=== PATIENT | male | born 1945 | race Caucasian/White ===

== ENCOUNTER 2017-05-03 12:09 | Inpatient (IN) | payer MEDICARE ==
[~2017-05-03] VITALS: Ht 177.8 cm; Wt 110.0 kg
[~2017-05-03 12:09] MED LIST: ASPI325; ASPI81CH PO; CENTRUM SILVER1 EAC2 PO; CIPRO500 MG PO; FLUT.05NI; Flagyl500 MG PO; GLIP5; Glipizide Xl10 MG PO; Iron Supplemen325 MG PO; LISI20 PO; METF500 PO; METO25 PO; OMEP20ER; OMEP40CA12 PO; PRAV20 PO; Percocet 5-3251 EACH PO; TRAZ150T57 PO; VENL150ER PO
[2017-05-03] MEDS ORDERED: GLIP2.5ER PO (12:18)
[2017-05-03] MEDS ORDERED: METF500 PO (12:19)
[2017-05-03] MEDS ORDERED: Isosorbide Mono30 MG PO (12:19)
[2017-05-03] MEDS ORDERED: OMEPRAZOLE MAGN20 MG PO (12:20)
[2017-05-03] MEDS ORDERED: XARELTO20 MG PO (12:21)
[2017-05-03] MEDS ORDERED: ASPI81CH PO (12:22)
[2017-05-03 12:42] LABS: BASOPHILS ABSOLUTE AUTO 0.01 K/mm3 (0.00-0.23); BASOPHILS PERCENT AUTO 0 % (0-2); EOSINOPHILS PERCENT AUTO 2 % (0-6); Hematocrit 19.4 % (37.0-53.0); IMMATURE GRAN ABSOLUTE AUTO 0.03 K/mm3 (0.00-0.10); IMMATURE GRAN PERCENT AUTO 0 % (0-1); LYMPHOCYTES ABSOLUTE AUTO 0.65 K/mm3 (0.84-5.20); LYMPHOCYTES PERCENT AUTO 10 % (21-46); MONOCYTES ABSOLUTE AUTO 0.57 K/mm3 (0.16-1.47); MONOCYTES PERCENT AUTO 8 % (4-13); Mean Corpuscular HGB 17.6 pg (26.0-34.0); Mean Corpuscular HGB Conc 26.8 g/dL (31.5-36.5); Mean Corpuscular Volume 66 fL (80-100); Mean Platelet Volume 9.7 fL (9.1-12.4); NEUTROPHILS ABSOLUTE AUTO 5.39 K/mm3 (1.96-9.15); NEUTROPHILS PERCENT AUTO 80 % (41-73); Platelet Count 261 K/mm3 (150-400); RDW Coefficient Variation 20.4 % (11.7-14.2); Red Blood Cell Count 2.95 M/mm3 (4.30-5.90); White Blood Cell Count 6.75 K/mm3 (4.00-11.30)
[2017-05-03 12:45] LABS: Hemoglobin 5.2 g/dL (13.5-17.5)
[2017-05-03 13:01] LABS: International Normalized Ratio 1.19; Prothrombin Time Results 12.4 Sec (9.7-11.5)
[2017-05-03 13:06] LABS: Alanine Aminotransfer (ALT/SGP 32 U/L (12-78); Albumin, Blood 3.2 g/dL (3.4-5.0); Albumin/Globulin Ratio 1.1 (0.8-1.8); Alk Phos 64 U/L (50-136); Anion Gap 10 mmol/L (6-16); Aspartate Aminotrans (AST/SGOT 24 U/L (12-37); Bilirubin, Total 0.7 mg/dL (0.1-1.0); Blood Urea Nitrogen 13 mg/dL (8-24); Bun/Creatinine Ratio 15.5 (12.0-20.0); CO2, Blood 25 mmol/L (21-32); Calcium, Blood 8.1 mg/dL (8.5-10.1); Chloride, Blood 103 mmol/L (98-108); Creatinine, Blood 0.84 mg/dL (0.60-1.20); Glomerular Filtration Rate >60 (60-); Glucose, Blood 192 mg/dL (70-99); Potassium, Blood 3.8 mmol/L (3.5-5.5); Sodium, Blood 138 mmol/L (136-145); Total Protein, Blood 6.2 g/dL (6.4-8.2); Troponin I <0.015 ng/mL (0.000-0.040)
[2017-05-04 04:11] LABS: Hematocrit 22.7 % (37.0-53.0); Hemoglobin 6.4 g/dL (13.5-17.5); Mean Corpuscular HGB 19.2 pg (26.0-34.0); Mean Corpuscular HGB Conc 28.2 g/dL (31.5-36.5); Mean Corpuscular Volume 68 fL (80-100); Mean Platelet Volume 9.3 fL (9.1-12.4); NRBC ABSOLUTE 0.03 K/mm3 (0.00-0.02); NRBC Auto 0.5 /100 WBC (0.0-0.2); Platelet Count 218 K/mm3 (150-400); RDW Coefficient Variation 21.2 % (11.7-14.2); RDW Standard Deviation 52.3 fL (35.1-46.3); Red Blood Cell Count 3.34 M/mm3 (4.30-5.90); White Blood Cell Count 6.65 K/mm3 (4.00-11.30)
[2017-05-04 12:51] LABS: Hematocrit 25.6 % (37.0-53.0); Hemoglobin 7.4 g/dL (13.5-17.5)
[2017-05-04 19:59] LABS: Hematocrit 24.6 % (37.0-53.0); Hemoglobin 6.9 g/dL (13.5-17.5)
[2017-05-05 05:09] LABS: Hematocrit 27.1 % (37.0-53.0); Hemoglobin 7.9 g/dL (13.5-17.5)
[2017-05-05 13:51] LABS: Hematocrit 28.4 % (37.0-53.0); Hemoglobin 8.4 g/dL (13.5-17.5)
[2017-05-06 00:26] LABS: Hematocrit 30.3 % (37.0-53.0)
[2018-01-01] MEDS ORDERED: ROSU5 PO (15:07)
[2018-01-01] MEDS ORDERED: CLOP75 PO (15:34)
[2018-01-01] MEDS ORDERED: HYDR1TAB94 PO (15:34)
[2018-01-01] MEDS ORDERED: Pepcid40 MG PO (15:34)
== END 2017-05-06 16:19 | disposition home or self-care (01) | DRG 378 ==
LOC: ER 12:09 → PCU 12:10
PROVIDERS: Emergency Medicine; Internal Medicine; Internal Medicine Gastroenterology
PROC: 3E0234Z Introduction of Serum, Toxoid and Vaccine into Muscle, Percutaneous Approach (ICD-10-PCS; 2017-05-03)
PROC: 30233N1 Transfusion of Nonautologous Red Blood Cells into Peripheral Vein, Percutaneous Approach (ICD-10-PCS; 2017-05-03)
PROC: 0W3P8ZZ Control Bleeding in Gastrointestinal Tract, Via Natural or Artificial Opening Endoscopic (ICD-10-PCS; 2017-05-04)
PROC: 0D568ZZ Destruction of Stomach, Via Natural or Artificial Opening Endoscopic (ICD-10-PCS; 2017-05-04)
PROC: 0DBH8ZZ Excision of Cecum, Via Natural or Artificial Opening Endoscopic (ICD-10-PCS; principal; 2017-05-06 12:30)
DX: K31.82 Dieulafoy lesion (hemorrhagic) of stomach and duodenum (principal); D62 Acute posthemorrhagic anemia; R06.03 Acute respiratory distress; I48.0 Paroxysmal atrial fibrillation; E11.9 Type 2 diabetes mellitus without complications; Z23 Encounter for immunization; Z87.11 Personal history of peptic ulcer disease; K21.9 Gastro-esophageal reflux disease without esophagitis; Z79.01 Long term (current) use of anticoagulants; E78.5 Hyperlipidemia, unspecified; I10 Essential (primary) hypertension; I25.10 Atherosclerotic heart disease of native coronary artery without angina pectoris; H91.93 Unspecified hearing loss, bilateral; K44.9 Diaphragmatic hernia without obstruction or gangrene; K57.30 Diverticulosis of large intestine without perforation or abscess without bleeding; K63.5 Polyp of colon; K64.1 Second degree hemorrhoids
CPT/HCPCS: 36415; 36430; 80053; 82272; 82947; 84484; 85014; 85018; 85025; 85027; 85610; 85730; 86850; 86900; 86901; 86920; 88305; 93005; 93010; 96374; 96375; 99285; C9113; J1940; J2405; J7030; J7120; P9016

== ENCOUNTER 2018-08-29 05:18 | Emergency (ER) | payer MEDICARE ==
[~2018-08-29] VITALS: Ht 180.3 cm; Wt 104.3 kg
[~2018-08-29 05:18] MED LIST changes: +CLOP75 PO; +GLIP2.5ER PO; +HYDR1TAB94 PO; +Isosorbide Mono30 MG PO; +OMEPRAZOLE MAGN20 MG PO; +Pepcid40 MG PO; +ROSU5 PO; +XARELTO20 MG PO
[2018-08-29 05:53] LABS: BASOPHILS ABSOLUTE AUTO 0.05 K/mm3 (0.00-0.23); BASOPHILS PERCENT AUTO 1 % (0-2); EOSINOPHILS PERCENT AUTO 3 % (0-6); Hematocrit 41.8 % (37.0-53.0); Hemoglobin 13.3 g/dL (13.5-17.5); IMMATURE GRAN ABSOLUTE AUTO 0.03 K/mm3 (0.00-0.10); IMMATURE GRAN PERCENT AUTO 0 % (0-1); LYMPHOCYTES ABSOLUTE AUTO 1.06 K/mm3 (0.84-5.20); LYMPHOCYTES PERCENT AUTO 15 % (21-46); MONOCYTES ABSOLUTE AUTO 0.76 K/mm3 (0.16-1.47); MONOCYTES PERCENT AUTO 11 % (4-13); Mean Corpuscular HGB 27.4 pg (26.0-34.0); Mean Corpuscular HGB Conc 31.8 g/dL (31.5-36.5); Mean Corpuscular Volume 86 fL (80-100); NEUTROPHILS ABSOLUTE AUTO 5.12 K/mm3 (1.96-9.15); NEUTROPHILS PERCENT AUTO 71 % (41-73); Platelet Count 281 K/mm3 (150-400); RDW Coefficient Variation 13.2 % (11.7-14.2); RDW Standard Deviation 41.4 fL (35.1-46.3); Red Blood Cell Count 4.85 M/mm3 (4.30-5.90); White Blood Cell Count 7.22 K/mm3 (4.00-11.30)
[2018-08-29 06:14] LABS: Alanine Aminotransfer (ALT/SGP 62 U/L (12-78); Albumin, Blood 3.9 g/dL (3.4-5.0); Albumin/Globulin Ratio 1.2 (0.8-1.8); Alk Phos 109 U/L (50-136); Anion Gap 8 mmol/L (6-16); Aspartate Aminotrans (AST/SGOT 43 U/L (12-37); Blood Urea Nitrogen 9 mg/dL (8-24); Bun/Creatinine Ratio 10.2 (12.0-20.0); CO2, Blood 26 mmol/L (21-32); Calcium, Blood 9.3 mg/dL (8.5-10.1); Chloride, Blood 103 mmol/L (98-108); Creatinine, Blood 0.89 mg/dL (0.60-1.20); Globulin, Blood 3.2 g/dL (2.2-4.0); Glomerular Filtration Rate >60 (60-); Glucose, Blood 322 mg/dL (70-99); Potassium, Blood 3.9 mmol/L (3.5-5.5); Sodium, Blood 137 mmol/L (136-145); Total Protein, Blood 7.1 g/dL (6.4-8.2); Troponin I <0.015 ng/mL (0.000-0.040)
[2018-08-29] MEDS ORDERED: LO-DOSE ASPIRIN81 MG PO (06:22)
[2018-08-29] MEDS ORDERED: NITR.4SL SL (06:22)
[2018-08-29] MEDS ORDERED: VENL150ER PO (06:22)
[2018-08-29] MEDS ORDERED: CENTRUM SILVER1 EAC4 PO (06:23)
[2018-08-29] MEDS ORDERED: FERROUS SULFATE PO (06:23)
== END 2018-08-29 08:06 | disposition home or self-care (01) ==
LOC: ER 05:18
PROVIDERS: Emergency Medicine
DX: I48.91 Unspecified atrial fibrillation (principal); Z79.899 Other long term (current) drug therapy; Z79.84 Long term (current) use of oral hypoglycemic drugs; Z79.82 Long term (current) use of aspirin; E11.9 Type 2 diabetes mellitus without complications; I10 Essential (primary) hypertension; I25.10 Atherosclerotic heart disease of native coronary artery without angina pectoris
CPT/HCPCS: 36415; 71046; 80053; 83735; 84484; 85025; 93005; 93010; 99285-25

== ENCOUNTER 2019-02-11 09:07 | Inpatient (IN) | payer MEDICARE ==
[~2019-02-11] VITALS: Ht 177.8 cm; Wt 101.4 kg
[~2019-02-11 09:07] MED LIST changes: +CENTRUM SILVER1 EAC4 PO; +FERSU300 PO; +GLIP10ER PO; -GLIP2.5ER PO; +LO-DOSE ASPIRIN81 MG PO; +NITR.4SL SL; -ROSU5 PO; +ROSUVASTATIN CA20 MG PO
[2019-02-11 09:50] LABS: BASOPHILS ABSOLUTE AUTO 0.04 K/mm3 (0.00-0.23); BASOPHILS PERCENT AUTO 1 % (0-2); EOSINOPHILS ABSOLUTE AUTO 0.13 K/mm3 (0.00-0.68); EOSINOPHILS PERCENT AUTO 2 % (0-6); Hematocrit 40.7 % (37.0-53.0); Hemoglobin 12.3 g/dL (13.5-17.5); IMMATURE GRAN ABSOLUTE AUTO 0.04 K/mm3 (0.00-0.10); IMMATURE GRAN PERCENT AUTO 1 % (0-1); LYMPHOCYTES ABSOLUTE AUTO 0.71 K/mm3 (0.84-5.20); LYMPHOCYTES PERCENT AUTO 9 % (21-46); MONOCYTES ABSOLUTE AUTO 0.57 K/mm3 (0.16-1.47); MONOCYTES PERCENT AUTO 8 % (4-13); Mean Corpuscular HGB 24.1 pg (26.0-34.0); Mean Corpuscular HGB Conc 30.2 g/dL (31.5-36.5); Mean Corpuscular Volume 80 fL (80-100); Mean Platelet Volume 10.2 fL (9.1-12.4); NEUTROPHILS PERCENT AUTO 80 % (41-73); Platelet Count 279 K/mm3 (150-400); RDW Coefficient Variation 14.5 % (11.7-14.2); Red Blood Cell Count 5.11 M/mm3 (4.30-5.90); White Blood Cell Count 7.59 K/mm3 (4.00-11.30)
[2019-02-11 09:54] LABS: Alanine Aminotransfer (ALT/SGP 54 U/L (12-78); Albumin, Blood 3.7 g/dL (3.4-5.0); Albumin/Globulin Ratio 1.1 (0.8-1.8); Alk Phos 105 U/L (50-136); Anion Gap 8 mmol/L (6-16); Aspartate Aminotrans (AST/SGOT 32 U/L (12-37); Bilirubin, Total 0.6 mg/dL (0.1-1.0); Blood Urea Nitrogen 15 mg/dL (8-24); Bun/Creatinine Ratio 18.6 (12.0-20.0); CO2, Blood 25 mmol/L (21-32); Chloride, Blood 106 mmol/L (98-108); Creatinine, Blood 0.81 mg/dL (0.60-1.20); Globulin, Blood 3.3 g/dL (2.2-4.0); Glomerular Filtration Rate >60 (60-); Glucose, Blood 323 mg/dL (70-99); Potassium, Blood 4.1 mmol/L (3.5-5.5); Sodium, Blood 139 mmol/L (136-145); Troponin I <0.015 ng/mL (0.000-0.040)
[2019-02-11 12:45] LABS: Thyroid Stimulating Hormone 0.884 uIU/mL (0.360-4.800)
[2019-02-11] MEDS ORDERED: PANT40 PO (12:53)
[2019-02-11] MEDS ORDERED: FINA5 PO (12:57)
[2019-02-11] MEDS ORDERED: TAMS.4ER PO (12:57)
[2019-02-11] MEDS ORDERED: Flonase 0.05% N16 GM (12:58)
[2019-02-11 13:21] LABS: International Normalized Ratio 0.98; Prothrombin Time Results 10.4 Sec (9.7-11.5)
--- NOTE | 2019-02-11 15:56 | NUR ---
transesophageal echocardiogram completed
--- NOTE | 2019-02-11 16:06 | NUR ---
PT ARRIVED TO PCU 2 VIA GURNEY FROM ED AFTER CRISSY AND ATTEMPTED CARDIOVERSION, HE IS A/OX3, [place], LUNGS ARE CLEAR T/O, RESP EVEN AND UNLABORED, NO COUGH NOTED, HRIRR, TELE IN PLACE RUNNING AFIB PER MONITOR, SEE STRIP, NO EDEMA NOTED, PPP+1, CAP REFILL <3SEC, VS STABLE, AFEBRILE, IV SITE IS CLEAR AND PATENT, BTX4, ABD FLAT SOFT NONTENDER, VOIDS WITHOUT DIFF, SKIN C/W/D, MAEW, SURESH, CALL LIGHT IN REACH.
--- NOTE | 2019-02-11 16:35 | NUR ---
ECHOCARDIOGRAM COMPLETE
--- NOTE | 2019-02-11 19:30 | NUR ---
DR. UREÑA WAS IN TO SEE PT, OK FOR HIM TO EAT DINNER THEN NPO AFTER MID, AMIODORONE IS INFUSING AND HEP GTT. PT DOING OK, CALL LIGHT IN REACH.
[2019-02-12 02:32] LABS: Anion Gap 6 mmol/L (6-16); Blood Urea Nitrogen 13 mg/dL (8-24); CHOL/HDL RATIO 3.4; CO2, Blood 28 mmol/L (21-32); Calcium, Blood 8.5 mg/dL (8.5-10.1); Chloride, Blood 107 mmol/L (98-108); Cholesterol 137 mg/dL (50-200); Creatinine, Blood 0.81 mg/dL (0.60-1.20); Glomerular Filtration Rate >60 (60-); Glucose, Blood 194 mg/dL (70-99); HDL Cholesterol 40 mg/dL (>39); LDL/HDL RATIO 1.8; Low Density Lipoprotein Chol 73 mg/dL (0-110); Sodium, Blood 141 mmol/L (136-145); Triglycerides 120 mg/dL (30-160); Very Low Density Lipoprot Chol 24 mg/dL (6-32)
--- NOTE | 2019-02-12 04:28 | NUR ---
SHIFT SUMMARY: PATIENT EKG COMPLETED, SLEPT WELL THIS SHIFT, HR REMAINED APPROX IN THE 80'S, ALL OTHER VSS. PATIENT VERY [place], NO HEARING AID FOR RIGHT EAR. 0000 BLOOD GLUCOSE READING DID NOT REGISTER BUT WAS IS STILL ON THE GLUCOMETER, WITNESSED BY MYSELF AND HANH Marrero, READING WAS 166.
--- NOTE | 2019-02-12 08:00 | NUR ---
pt laying in bed awake a/ox3, pleasant and cooperative with care, follows commands well, denies pain, states he had a pretty good night, he is still running afib, amiodorone and heperin is continuing, lungs are clear in upper bob and a bit dim in bases, is on r/a, resp even and unlabored, no cough noted, hrirr, tele in place running afib per monitor, see strip, no edema noted, ppp+1, cap refill <3sec, vs stable, afebrile, iv sites are clear and patent, btx4, abd flat soft nontender, voids without diff, skin c/w/d, maew, nitza, call light in reach.
--- NOTE | 2019-02-12 13:02 | NUR ---
PT DOING OK IN ROOM, IS FOCUSED ON GETTING SOME COFFEE. CALL LIGHT IN REACH.
--- NOTE | 2019-02-12 18:54 | NUR ---
pt doing ok, vs stable, no acute changes this shift. call light in reach.
--- NOTE | 2019-02-12 19:39 | NUR ---
CARE ASSUMPTION PT A&O X4. PT [place] W/ 1 HEARING AID IN L EAR W/ PT REPORT OF HAVING LOST HEARING AID FOR R EAR. PT VSS. MONITOR SHOWS AFIB, HR 80'S AT THIS TIME. LUNG SOUNDS CLEAR, SPO2 > 92% ON RA. WILL CONTINUE TO MONITOR AND PROVIDE CARE.
--- NOTE | 2019-02-12 21:00 | NUR ---
CONVERSION TO NSR PT CONVERTED FROM AFIB TO NSR, HR 80's @ 2044. CONVERSION STRIP PRINTED AND PLACED IN CHART. WILL CONTINUE TO MONITOR AND PROVIDE CARE.
[2019-02-13 03:36] LABS: BASOPHILS ABSOLUTE AUTO 0.05 K/mm3 (0.00-0.23); BASOPHILS PERCENT AUTO 1 % (0-2); EOSINOPHILS ABSOLUTE AUTO 0.25 K/mm3 (0.00-0.68); EOSINOPHILS PERCENT AUTO 4 % (0-6); Hematocrit 36.6 % (37.0-53.0); IMMATURE GRAN ABSOLUTE AUTO 0.03 K/mm3 (0.00-0.10); IMMATURE GRAN PERCENT AUTO 0 % (0-1); LYMPHOCYTES PERCENT AUTO 21 % (21-46); MONOCYTES ABSOLUTE AUTO 0.67 K/mm3 (0.16-1.47); MONOCYTES PERCENT AUTO 10 % (4-13); Mean Corpuscular HGB 24.2 pg (26.0-34.0); Mean Corpuscular HGB Conc 30.1 g/dL (31.5-36.5); Mean Corpuscular Volume 80 fL (80-100); Mean Platelet Volume 10.2 fL (9.1-12.4); NEUTROPHILS ABSOLUTE AUTO 4.54 K/mm3 (1.96-9.15); NEUTROPHILS PERCENT AUTO 65 % (41-73); Platelet Count 205 K/mm3 (150-400); RDW Coefficient Variation 14.5 % (11.7-14.2); RDW Standard Deviation 42.5 fL (35.1-46.3); Red Blood Cell Count 4.55 M/mm3 (4.30-5.90); White Blood Cell Count 7.04 K/mm3 (4.00-11.30)
[2019-02-13 04:00] LABS: Anion Gap 6 mmol/L (6-16); Blood Urea Nitrogen 13 mg/dL (8-24); Bun/Creatinine Ratio 17.1 (12.0-20.0); CO2, Blood 28 mmol/L (21-32); Calcium, Blood 8.4 mg/dL (8.5-10.1); Chloride, Blood 108 mmol/L (98-108); Creatinine, Blood 0.76 mg/dL (0.60-1.20); Glomerular Filtration Rate >60 (60-); Glucose, Blood 157 mg/dL (70-99); Magnesium, Blood 2.1 mg/dL (1.6-2.4); Potassium, Blood 4.1 mmol/L (3.5-5.5); Sodium, Blood 142 mmol/L (136-145); Troponin I <0.015 ng/mL (0.000-0.040)
--- NOTE | 2019-02-13 05:09 | NUR ---
SHIFT SUMMARY PT A&O X4. [place]. VSS. PT CONVERTED FROM AFIB TO NSR @ 2044 THIS SHIFT. MONITOR SHOWS SR, HR 60's-80's. LUNG SOUNDS CLEAR, SPO2 > 92% ON RA. HEPARIN GTT INFUSING PER ORDERS. NS GTT INFUSING PER ORDERS. WILL CONTINUE TO MONITOR AND PROVIDE CARE UNTIL REPORT OFF TO DAY SHIFT RN.
--- NOTE | 2019-02-13 08:00 | NUR ---
ASSUMED CARE APPROXIMATELY 0700; PT A&O; ON RA W/ O2 SATS>94; DR. HENRIQUEZ AT BEDSIDE REVIEWING DISCHARGE PLAN; PT DENIES CHEST PAIN; DENIES NEEDS AT THIS TIME; IV INFUSING APPROPRIATELY; AM CARE PERFORMED; CALL LIGHT IN REACH; BED IN LOWEST POSITION; WILL CONTINUE TO MONITOR CLOSELY
[2019-02-13] MEDS ORDERED: ACET325 PO (11:19)
[2019-02-13] MEDS ORDERED: METO25 PO (11:20)
[2019-02-13] MEDS ORDERED: Amiodarone HCl200 MG PO (11:20)
[2019-02-13] MEDS ORDERED: XARELTO20 MG PO ×2 (12:47→12:57)
--- NOTE | 2019-02-13 14:00 | NUR ---
PT PREPARED FOR DISCHARGE; REVIEWED NEW MEDICATIONS W/ PT AND SPOUSE; FOLLOW UP APPOINTMENTS NEED TO BE MADE AND PT VERBALIZED UNDERSTANDING; VERBALIZED UNDERSTANDING; IV'S DISCONTINUED WHOLE AND INTACT; NEW PRESCRIPTION ORDER CALLED IN TO [facility]; NEW XARELTO MEDICATION REVIEWED; PRINTED EDUCATION MATERIAL GIVEN TO PT REGARDING NEW MEDICATIONS XARELTO SAMPLES SENT WITH PT; ALL BELONGINGS SENT W/ PT; PT TAKENT BY WHEELCHAIR BY NURSE; ACCOMPANIED BY SPOUSE
== END 2019-02-13 13:55 | disposition home or self-care (01) | DRG 310 ==
LOC: ER 09:07 → PCU 09:08
PROVIDERS: Emergency Medicine; Internal Medicine Cardiovascular Disease; Nurse Practitioner Acute Care; Pharmacist; ADMIT Family Medicine
PROC: 5A2204Z Restoration of Cardiac Rhythm, Single (ICD-10-PCS; principal; 2019-02-11)
PROC: B24BZZ4 Ultrasonography of Heart with Aorta, Transesophageal (ICD-10-PCS; 2019-02-11)
DX: I48.0 Paroxysmal atrial fibrillation (principal); R07.89 Other chest pain; E11.65 Type 2 diabetes mellitus with hyperglycemia; I10 Essential (primary) hypertension; H91.93 Unspecified hearing loss, bilateral; K21.9 Gastro-esophageal reflux disease without esophagitis; D50.9 Iron deficiency anemia, unspecified; I25.10 Atherosclerotic heart disease of native coronary artery without angina pectoris; Z95.5 Presence of coronary angioplasty implant and graft; Z87.11 Personal history of peptic ulcer disease; Z86.79 Personal history of other diseases of the circulatory system; Z79.899 Other long term (current) drug therapy; Z79.84 Long term (current) use of oral hypoglycemic drugs; Z79.02 Long term (current) use of antithrombotics/antiplatelets; Z79.82 Long term (current) use of aspirin
CPT/HCPCS: 36415; 71046; 80048; 80053; 80061; 82947; 83735; 84443; 84484; 85025; 85610; 85730; 93005; 93010; 93306; 93312; 93325; 96365; 96366; 96375; 96376; 99285-25; G0378; J0282; J1644; J2704; J7030; J7060

== ENCOUNTER 2019-07-17 15:46 | Inpatient (IN) | payer MEDICARE ==
[~2019-07-17] VITALS: Ht 180.3 cm; Wt 104.3 kg
[~2019-07-17 15:46] MED LIST changes: +ACET325 PO; +ASPIR 8181 MG PO; +Amiodarone HCl200 MG PO; +FINA5 PO; +Flonase 0.05% N16 GM; -LO-DOSE ASPIRIN81 MG PO; +PANT40 PO; +TAMS.4ER PO
[2019-07-17 16:21] LABS: BASOPHILS ABSOLUTE AUTO 0.03 K/mm3 (0.00-0.23); BASOPHILS PERCENT AUTO 1 % (0-2); EOSINOPHILS ABSOLUTE AUTO 0.19 K/mm3 (0.00-0.68); EOSINOPHILS PERCENT AUTO 3 % (0-6); Hematocrit 24.8 % (37.0-53.0); Hemoglobin 6.7 g/dL (13.5-17.5); IMMATURE GRAN ABSOLUTE AUTO 0.02 K/mm3 (0.00-0.10); IMMATURE GRAN PERCENT AUTO 0 % (0-1); LYMPHOCYTES ABSOLUTE AUTO 0.94 K/mm3 (0.84-5.20); LYMPHOCYTES PERCENT AUTO 15 % (21-46); MONOCYTES ABSOLUTE AUTO 0.54 K/mm3 (0.16-1.47); MONOCYTES PERCENT AUTO 9 % (4-13); Mean Corpuscular HGB 18.6 pg (26.0-34.0); Mean Corpuscular Volume 69 fL (80-100); Mean Platelet Volume 9.6 fL (9.1-12.4); NEUTROPHILS ABSOLUTE AUTO 4.51 K/mm3 (1.96-9.15); NEUTROPHILS PERCENT AUTO 72 % (41-73); Platelet Count 335 K/mm3 (150-400); RDW Coefficient Variation 17.2 % (11.7-14.2); RDW Standard Deviation 42.9 fL (35.1-46.3); White Blood Cell Count 6.23 K/mm3 (4.00-11.30)
[2019-07-17 16:42] LABS: Alanine Aminotransfer (ALT/SGP 33 U/L (12-78); Albumin, Blood 3.4 g/dL (3.4-5.0); Albumin/Globulin Ratio 1.2 (0.8-1.8); Alk Phos 65 U/L (50-136); Anion Gap 7 mmol/L (6-16); Aspartate Aminotrans (AST/SGOT 23 U/L (12-37); Bilirubin, Total 0.6 mg/dL (0.1-1.0); Blood Urea Nitrogen 17 mg/dL (8-24); Bun/Creatinine Ratio 21.2 (12.0-20.0); CO2, Blood 28 mmol/L (21-32); Calcium, Blood 8.5 mg/dL (8.5-10.1); Chloride, Blood 104 mmol/L (98-108); Globulin, Blood 2.8 g/dL (2.2-4.0); Glomerular Filtration Rate >60 (60-); Glucose, Blood 160 mg/dL (70-99); Potassium, Blood 4.3 mmol/L (3.5-5.5); Sodium, Blood 139 mmol/L (136-145); Total Protein, Blood 6.2 g/dL (6.4-8.2); Troponin I <0.015 ng/mL (0.000-0.040)
[2019-07-17 17:23] LABS: International Normalized Ratio 1.03
[2019-07-17 19:26] LABS: Percent Saturation 3.2 % (20.0-50.0)
[2019-07-17 20:24] LABS: Hematocrit 24.4 % (37.0-53.0); Hemoglobin 6.7 g/dL (13.5-17.5)
--- NOTE | 2019-07-18 01:51 | NUR ---
RECEIVED CALL FROM DR. DUNBAR WITH ORDERS TO CHANGE PT DIET TO FULL LIQUID AND TO D/C BID PO PROTONIX AND START PROTONIX CONTINUOUS INFUSION. NOTED.
[2019-07-18 03:20] LABS: BASOPHILS ABSOLUTE AUTO 0.07 K/mm3 (0.00-0.23); BASOPHILS PERCENT AUTO 1 % (0-2); EOSINOPHILS ABSOLUTE AUTO 0.26 K/mm3 (0.00-0.68); EOSINOPHILS PERCENT AUTO 4 % (0-6); Hemoglobin 7.9 g/dL (13.5-17.5); IMMATURE GRAN ABSOLUTE AUTO 0.01 K/mm3 (0.00-0.10); IMMATURE GRAN PERCENT AUTO 0 % (0-1); LYMPHOCYTES ABSOLUTE AUTO 1.23 K/mm3 (0.84-5.20); LYMPHOCYTES PERCENT AUTO 21 % (21-46); MONOCYTES ABSOLUTE AUTO 0.57 K/mm3 (0.16-1.47); MONOCYTES PERCENT AUTO 10 % (4-13); Mean Corpuscular HGB Conc 29.3 g/dL (31.5-36.5); Mean Platelet Volume 9.7 fL (9.1-12.4); NEUTROPHILS ABSOLUTE AUTO 3.79 K/mm3 (1.96-9.15); NEUTROPHILS PERCENT AUTO 64 % (41-73); Platelet Count 268 K/mm3 (150-400); RDW Coefficient Variation 19.1 % (11.7-14.2); RDW Standard Deviation 49.3 fL (35.1-46.3); Red Blood Cell Count 3.76 M/mm3 (4.30-5.90); White Blood Cell Count 5.93 K/mm3 (4.00-11.30)
[2019-07-18 03:21] LABS: Mean Corpuscular Volume 72 fL (80-100)
[2019-07-18 03:37] LABS: Alanine Aminotransfer (ALT/SGP 28 U/L (12-78); Albumin/Globulin Ratio 1.2 (0.8-1.8); Alk Phos 51 U/L (50-136); Anion Gap 8 mmol/L (6-16); Aspartate Aminotrans (AST/SGOT 20 U/L (12-37); Bilirubin, Total 1.9 mg/dL (0.1-1.0); Blood Urea Nitrogen 14 mg/dL (8-24); Bun/Creatinine Ratio 17.5 (12.0-20.0); CO2, Blood 26 mmol/L (21-32); Calcium, Blood 8.3 mg/dL (8.5-10.1); Chloride, Blood 107 mmol/L (98-108); Globulin, Blood 2.4 g/dL (2.2-4.0); Glomerular Filtration Rate >60 (60-); Glucose, Blood 127 mg/dL (70-99); Potassium, Blood 4.2 mmol/L (3.5-5.5); Sodium, Blood 141 mmol/L (136-145); Total Protein, Blood 5.4 g/dL (6.4-8.2)
--- NOTE | 2019-07-18 05:37 | NUR ---
SHIFT SUMMARY: [facility] AAOX4. VERY [place]. WEARS ONE NÚÑEZ. RECIEVED 2 UNITS OF BLOOD. TOLERATED WELL. LR AND PROTONIX CURRENTLY INFUSING CONTINUOUSLY PER ORDERS. NO N/V/D. STATES STOOLS HAVE BEEN DARK BROWN- NOT BLACK OR RED. ABD SOFT, NONTENDER, NONDISTENDED. TOLERATING FULL LIQUID DIET WELL. CURRENTLY APPEARS TO BE SLEEPING QUIETLY. NO ACUTE CHANGES TONIGHT. WILL CONT TO MONITOR.
[2019-07-18 07:04] LABS: Hematocrit 28.2 % (37.0-53.0); Hemoglobin 8.2 g/dL (13.5-17.5)
[2019-07-18 11:09] LABS: Hematocrit 27.7 % (37.0-53.0)
[2019-07-18 15:25] LABS: Hematocrit 29.5 % (37.0-53.0); Hemoglobin 8.6 g/dL (13.5-17.5)
--- NOTE | 2019-07-18 16:33 | NUR ---
SUMMARY PT IS A/O X4, [place] HOWEVER HAS HEARING AIDES. HE IS UP SBA TO BR THIS AM, +BM HOWEVER UNOBSERVED BY THIS RN, PT STATE FORMED HOWEVER UNABLE TO STATE COLOR FOR CERTAIN. NO RECTAL BLEEDING NOTED. HE CONTINUES ANEMIC HOWEVER IMPROVED FOLLOWING 2 UNIT PRBC INFUSION LAST NOC, H&H @ 8.6/29.5, DR CALIX ORDER IV FE+ THIS AFTERNOON. DR DUNBAR(GI) IN TO SEE TODAY, CONTINUE FL DIET FOR NOW, PLAN FOR EGD POSSIBLY TOMORROW HOWEVER NO ORDER @ THIS TIME. PT IS OFF HIS PLAVIX APPROX 2 DAYS. PROTONIX GTT CONINUES @ 10 ML/HR. ON ADMIT YESTERDAY STATED CHEST PAIN & SOB w EXERT, CARDIAC TESTS WERE NEGATIVE. HE HAS STATED NO SOB @ REST, ON RA. HE STATE MILD CHEST PRESSURE. HRR 60'S, BP STABLE. DR CALIX REVIEW HOME MEDICATIONS RESTART CARDIAC MEDS TODAY w EXCEPTION OF PLAVIX. SCDS IN PLACE.
[2019-07-18 19:12] LABS: Hematocrit 31.7 % (37.0-53.0)
--- NOTE | 2019-07-19 05:11 | NUR ---
SHIFT SUMMARY: VSS. AFEB. AAOX3. SKIN WARM AND DRY. [place]. DENIES CHEST PAIN AND SOB. AMBULATING AROUND ROOM W/SBA WITHOUT DYSPNEA. NO BM TONIGHT. NO N/V/D. ABD SOFT, NON TENDER, NON DISTENDED. BETTYE FULL LIQUID DIET WELL. WILL BE NPO AT NOON TODAY IN PREPARATION FOR EGD, PT AWARE. CONT PROTONIX IV DRIP ORDERED. NO ACUTE CHANGES TONIGHT. WILL CONT TO MONITOR.
[2019-07-19 05:21] LABS: BASOPHILS ABSOLUTE AUTO 0.07 K/mm3 (0.00-0.23); BASOPHILS PERCENT AUTO 1 % (0-2); EOSINOPHILS ABSOLUTE AUTO 0.26 K/mm3 (0.00-0.68); EOSINOPHILS PERCENT AUTO 4 % (0-6); Hematocrit 29.1 % (37.0-53.0); Hemoglobin 8.5 g/dL (13.5-17.5); IMMATURE GRAN ABSOLUTE AUTO 0.03 K/mm3 (0.00-0.10); IMMATURE GRAN PERCENT AUTO 0 % (0-1); LYMPHOCYTES ABSOLUTE AUTO 1.08 K/mm3 (0.84-5.20); LYMPHOCYTES PERCENT AUTO 16 % (21-46); MONOCYTES ABSOLUTE AUTO 0.83 K/mm3 (0.16-1.47); MONOCYTES PERCENT AUTO 12 % (4-13); Mean Corpuscular HGB 20.8 pg (26.0-34.0); Mean Corpuscular HGB Conc 29.2 g/dL (31.5-36.5); Mean Corpuscular Volume 71 fL (80-100); Mean Platelet Volume 9.7 fL (9.1-12.4); NEUTROPHILS PERCENT AUTO 68 % (41-73); Platelet Count 276 K/mm3 (150-400); RDW Coefficient Variation 19.5 % (11.7-14.2); RDW Standard Deviation 48.9 fL (35.1-46.3); Red Blood Cell Count 4.09 M/mm3 (4.30-5.90); White Blood Cell Count 6.97 K/mm3 (4.00-11.30)
[2019-07-19 05:30] LABS: Anion Gap 6 mmol/L (6-16); Blood Urea Nitrogen 10 mg/dL (8-24); Bun/Creatinine Ratio 11.6 (12.0-20.0); CO2, Blood 28 mmol/L (21-32); Calcium, Blood 8.6 mg/dL (8.5-10.1); Chloride, Blood 108 mmol/L (98-108); Creatinine, Blood 0.87 mg/dL (0.60-1.20); Glomerular Filtration Rate >60 (60-); Glucose, Blood 89 mg/dL (70-99); Potassium, Blood 4.2 mmol/L (3.5-5.5); Sodium, Blood 142 mmol/L (136-145)
--- NOTE | 2019-07-19 12:44 | NUR ---
STARTED NEW IV, PHARMACY SUGGESTED STOPPING PROTONIX SO ABLE TO RUN IRON, WILL RESTART CLEMENTE, EXPLAINED TO PT HE DID NOT WANT ANOTHER IV STARTED
--- NOTE | 2019-07-19 16:39 | NUR ---
07/19/19 1639 [address] [place] History, Chart, Medications and Allergies reviewed before start of procedure. 3-LEAD EKG REVIEWED WITH PHYSICIAN PRIOR TO START OF PROCEDURE. O2 VIA N/C INTACT THROUGHOUT SEDATION/PROCEDURE. MONITOR INTACT WITH CONTINUOUS PULSE OXIMETRY AND INTERMITTENT BP. PATIENT DETERMINED TO BE ASA APPROPRIATE FOR PROPOFOL SEDATION PRIOR TO START OF PROCEDURE BY DR. DUNBAR
--- NOTE | 2019-07-19 18:23 | NUR ---
a+o, returned from procedure, post procedure vitals, call light in reach, procedure was successful, states he belives he was able to deal with the cause of the gi bleed, sitting up waiting for dinner, rm air, saline locked
--- NOTE | 2019-07-19 19:45 | NUR ---
ASSUMED CARE. PATIENT IS PLEASANT AND COOPERATIVE. [place]. DENIES ANY PAIN OR DISCOMFORT. NO NAUSEA OR TENDERNESS IN ABDOMIN. BT X4. BM TODAY RUNNY DIARRHEA HE STATES. ABLE TO EAT ALL OF HIS DIET WELL. DR. DUNBAR WAS IN EARLIER AND EXPLAINED TO HIM THE OUTCOME OF HIS PROCEDURE. NO NEW ORDERS RECEIVED. LUNG SOUNDS CLEAR T/O. HR REGULAR RYTHEM. DENIES ANY SOB, CHEST PAIN, DIZZINESS, OR OTHER SYMPTOMS. ORANGE POP CYCLE GIVEN. CALL LIGHT IN REACH. WILL CONTINUE TO MONITOR.
--- NOTE | 2019-07-19 23:00 | NUR ---
PATIENT JUST LAID DOWN TO SLEEP. GAVE HIM PILLOWS AND ANOTHER COVER EARLIER. HE SAT UP READING FOR A SHORT PERIODS TILL NOW. WILL CONTINUE TO MONITOR, CALL LIGHT IN REACH.
--- NOTE | 2019-07-20 02:20 | NUR ---
PATIENT WAS UP PLAYING GAME ON HIS PHONE EARLIER STATING HE COULD NOT SLEEP, HE IS NOW LAYING DOWN WITH LIGHTS OFF, ATTEMPTING TO SLEEP THE REST OF THE NIGHT. WILL CONTINUE TO MONITOR.
[2019-07-20 05:20] LABS: BASOPHILS ABSOLUTE AUTO 0.05 K/mm3 (0.00-0.23); BASOPHILS PERCENT AUTO 1 % (0-2); EOSINOPHILS ABSOLUTE AUTO 0.27 K/mm3 (0.00-0.68); EOSINOPHILS PERCENT AUTO 3 % (0-6); Hematocrit 31.7 % (37.0-53.0); Hemoglobin 8.9 g/dL (13.5-17.5); IMMATURE GRAN ABSOLUTE AUTO 0.04 K/mm3 (0.00-0.10); IMMATURE GRAN PERCENT AUTO 1 % (0-1); LYMPHOCYTES ABSOLUTE AUTO 1.23 K/mm3 (0.84-5.20); LYMPHOCYTES PERCENT AUTO 15 % (21-46); MONOCYTES ABSOLUTE AUTO 0.91 K/mm3 (0.16-1.47); MONOCYTES PERCENT AUTO 11 % (4-13); Mean Corpuscular HGB 20.3 pg (26.0-34.0); Mean Corpuscular HGB Conc 28.1 g/dL (31.5-36.5); Mean Corpuscular Volume 72 fL (80-100); Mean Platelet Volume 9.8 fL (9.1-12.4); NEUTROPHILS ABSOLUTE AUTO 5.71 K/mm3 (1.96-9.15); NEUTROPHILS PERCENT AUTO 70 % (41-73); NRBC ABSOLUTE 0.02 K/mm3 (0.00-0.02); NRBC Auto 0.2 /100 WBC (0.0-0.2); Platelet Count 298 K/mm3 (150-400); RDW Coefficient Variation 20.6 % (11.7-14.2); RDW Standard Deviation 51.9 fL (35.1-46.3); Red Blood Cell Count 4.38 M/mm3 (4.30-5.90); White Blood Cell Count 8.21 K/mm3 (4.00-11.30)
--- NOTE | 2019-07-20 05:25 | NUR ---
SHIFT SUMMARY: 74 Y/O ADMITTED FOR UPPER GI BLEED, ANEMIA. AOX3, SBA TO INDEPENDENT IN THE ROOM. [place]. DR. DUNBAR WAS IN TO SEE PATIENT, INFORMED HIM OF SMALL VESSAL BLEED, THAT WAS CARTIRIZED. BM LOOSE, NO BLOOD NOTED. NO SYMPTOMS OF GI BLEED AT THIS TIME. TOOK MEDS WITH WATER. BLOOD SUGAR WAS 276, LANTUS GIVEN. H/H THIS AM IS 8.9 AND 31.7 NO CHANGE FROM YESTERDAY. VS REMAINED STABLE, NO PAIN. WILL CONTINUE TO MONITOR TILL DAY SHIFT ARRIVES.
[2019-07-20] MEDS ORDERED: LISI5 PO (09:52)
--- NOTE | 2019-07-20 12:27 | NUR ---
DISCHARGE: PACKET PRINTED AND PT EDUCATED. SENT WITH SCRIPT FOR REPEAT CBC. MEDICATIONS IF NEEDED FAXED. PT VERBALIZED UNDERSTANDING. ACCOMPANIED OFF UNIT BY ERICA [place] AT ABOUT 1120.
== END 2019-07-20 11:39 | disposition home or self-care (01) | DRG 377 ==
LOC: ER 15:46 → MEDS 18:06
PROVIDERS: Emergency Medicine; Internal Medicine Gastroenterology; Physician Assistant; ADMIT Internal Medicine
PROC: 30233N1 Transfusion of Nonautologous Red Blood Cells into Peripheral Vein, Percutaneous Approach (ICD-10-PCS; 2019-07-17)
PROC: 0D5A8ZZ Destruction of Jejunum, Via Natural or Artificial Opening Endoscopic (ICD-10-PCS; principal; 2019-07-19 16:00)
DX: K55.21 Angiodysplasia of colon with hemorrhage (principal); G92 Toxic encephalopathy; D62 Acute posthemorrhagic anemia; I25.10 Atherosclerotic heart disease of native coronary artery without angina pectoris; E11.9 Type 2 diabetes mellitus without complications; H91.93 Unspecified hearing loss, bilateral; Z98.52 Vasectomy status; I10 Essential (primary) hypertension; E66.9 Obesity, unspecified; Z79.84 Long term (current) use of oral hypoglycemic drugs; Z95.5 Presence of coronary angioplasty implant and graft; E78.2 Mixed hyperlipidemia; Z68.32 Body mass index [BMI] 32.0-32.9, adult; E80.6 Other disorders of bilirubin metabolism; R41.82 Altered mental status, unspecified; K59.00 Constipation, unspecified
CPT/HCPCS: 36415; 36430; 71045; 80048; 80053; 82728; 82947; 83540; 83550; 84484; 85014; 85018; 85025; 85610; 86850; 86900; 86901; 86923; 93005; 93010; 96374; 99285-25; A9270-GY; C9113; J2704; J2916; J7050; J7120; P9016

== ENCOUNTER → 2019-12-24 | Outpatient (CLI) | payer MEDICARE ==
[~2019-12-24] MED LIST changes: +Aspir 8181 MG PO; +LISI5 PO
[2019-12-24 18:07] LABS: Percent Saturation 37.8 % (20.0-50.0)
== END | disposition home or self-care (01) ==
LOC: LAB 11:30 → LAB SHORT 11:30
PROVIDERS: Internal Medicine Hematology & Oncology
DX: D50.9 Iron deficiency anemia, unspecified (principal); E53.8 Deficiency of other specified B group vitamins
CPT/HCPCS: 82607; 82728; 82746; 83540; 83550

== ENCOUNTER 2020-12-12 11:02 | Emergency (ER) | payer MEDICARE ==
[~2020-12-12] VITALS: Ht 175.3 cm; Wt 90.7 kg
== END 2020-12-12 13:40 | disposition home or self-care (01) ==
LOC: ER 11:02
DX: S52.511A Displaced fracture of right radial styloid process, initial encounter for closed fracture (principal); I48.20 Chronic atrial fibrillation, unspecified; I25.10 Atherosclerotic heart disease of native coronary artery without angina pectoris; E11.9 Type 2 diabetes mellitus without complications; I10 Essential (primary) hypertension; Z79.899 Other long term (current) drug therapy; Z79.84 Long term (current) use of oral hypoglycemic drugs; Z79.82 Long term (current) use of aspirin; W19.XXXA Unspecified fall, initial encounter
CPT/HCPCS: 29125; 73110; 99283-25

== ENCOUNTER 2021-01-25 15:39 | Emergency (ER) | payer OTHER, MEDICARE ==
[~2021-01-25] VITALS: Ht 175.3 cm; Wt 90.7 kg
[2021-01-25 16:35] LABS: BASOPHILS ABSOLUTE AUTO 0.04 K/mm3 (0.00-0.23); BASOPHILS PERCENT AUTO 1 % (0-2); EOSINOPHILS ABSOLUTE AUTO 0.12 K/mm3 (0.00-0.68); EOSINOPHILS PERCENT AUTO 2 % (0-6); Hematocrit 42.5 % (37.0-53.0); Hemoglobin 13.7 g/dL (13.5-17.5); IMMATURE GRAN ABSOLUTE AUTO 0.03 K/mm3 (0.00-0.10); IMMATURE GRAN PERCENT AUTO 0 % (0-1); LYMPHOCYTES ABSOLUTE AUTO 0.84 K/mm3 (0.84-5.20); LYMPHOCYTES PERCENT AUTO 11 % (21-46); MONOCYTES ABSOLUTE AUTO 0.49 K/mm3 (0.16-1.47); MONOCYTES PERCENT AUTO 7 % (4-13); Mean Corpuscular HGB 29.3 pg (26.0-34.0); Mean Corpuscular HGB Conc 32.2 g/dL (31.5-36.5); Mean Corpuscular Volume 91 fL (80-100); Mean Platelet Volume 9.7 fL (9.1-12.4); NEUTROPHILS ABSOLUTE AUTO 6.03 K/mm3 (1.96-9.15); NEUTROPHILS PERCENT AUTO 80 % (41-73); Platelet Count 240 K/mm3 (150-400); RDW Coefficient Variation 12.9 % (11.7-14.2); RDW Standard Deviation 42.7 fL (35.1-46.3); Red Blood Cell Count 4.67 M/mm3 (4.30-5.90); White Blood Cell Count 7.55 K/mm3 (4.00-11.30)
[2021-01-25 16:54] LABS: Alanine Aminotransfer (ALT/SGP 61 U/L (12-78); Albumin, Blood 3.6 g/dL (3.4-5.0); Albumin/Globulin Ratio 1.2 (0.8-1.8); Alk Phos 79 U/L (50-136); Anion Gap 4 mmol/L (6-16); Aspartate Aminotrans (AST/SGOT 29 U/L (12-37); Bilirubin, Total 0.8 mg/dL (0.1-1.0); Blood Urea Nitrogen 19 mg/dL (8-24); Bun/Creatinine Ratio 21.8 (12.0-20.0); CO2, Blood 32 mmol/L (21-32); Calcium, Blood 9.2 mg/dL (8.5-10.1); Chloride, Blood 103 mmol/L (98-108); Creatinine, Blood 0.87 mg/dL (0.60-1.20); Globulin, Blood 3.1 g/dL (2.2-4.0); Glomerular Filtration Rate >60 (60-); Glucose, Blood 164 mg/dL (70-99); Potassium, Blood 4.4 mmol/L (3.5-5.5); Sodium, Blood 139 mmol/L (136-145); Total Protein, Blood 6.7 g/dL (6.4-8.2)
[2021-01-25] MEDS ORDERED: Percocet 5-3251 EACH PO (19:48)
== END 2021-01-25 20:32 | disposition home or self-care (01) ==
LOC: ER 15:39
PROVIDERS: Physician Assistant
DX: S22.32XA Fracture of one rib, left side, initial encounter for closed fracture (principal); I48.20 Chronic atrial fibrillation, unspecified; I25.10 Atherosclerotic heart disease of native coronary artery without angina pectoris; E11.9 Type 2 diabetes mellitus without complications; I10 Essential (primary) hypertension; Z79.899 Other long term (current) drug therapy; Z79.82 Long term (current) use of aspirin; Z79.02 Long term (current) use of antithrombotics/antiplatelets; W01.0XXA Fall on same level from slipping, tripping and stumbling without subsequent striking against object, initial encounter
CPT/HCPCS: 36415; 74177; 80053; 85025; 96374; 99284-25; A9270; J1885; Q9967

== ENCOUNTER → 2022-04-16 | Outpatient (CLI) | payer MEDICARE | LOC: LAB SHORT 14:45 → LAB 14:45 | DX: L02.91 Cutaneous abscess, unspecified (principal) | CPT/HCPCS: 87070; 87075; 87076; 87205 ==

== ENCOUNTER → 2022-05-27 | Outpatient (CLI) | payer MEDICARE ==
[2022-05-31 08:10] LABS: HCV LOG10 6.233 (.); HEPATITIS C QUANTITATION 1710000 IU/mL (.)
== END ==
LOC: LAB 16:56 → LAB SHORT 16:56
PROVIDERS: Family Medicine
DX: B18.2 Chronic viral hepatitis C (principal)
CPT/HCPCS: 87522

== ENCOUNTER 2023-03-03 19:03 | Emergency (ER) | payer OTHER, MEDICARE ==
[~2023-03-03] VITALS: Ht 177.8 cm; Wt 95.2 kg
[~2023-03-03 19:03] MED LIST changes: +METOPROLOL TA37.5 M1 PO
[2023-03-03 19:27] VITALS: BP 127/67
== END 2023-03-03 20:38 | disposition home or self-care (01) ==
LOC: ER 19:03
DX: S62.326A Displaced fracture of shaft of fifth metacarpal bone, right hand, initial encounter for closed fracture (principal); W01.10XA Fall on same level from slipping, tripping and stumbling with subsequent striking against unspecified object, initial encounter; Z79.899 Other long term (current) drug therapy; Z79.84 Long term (current) use of oral hypoglycemic drugs; Z79.82 Long term (current) use of aspirin; E11.9 Type 2 diabetes mellitus without complications; I10 Essential (primary) hypertension
CPT/HCPCS: 29125; 73130; 99283-25

== ENCOUNTER 2023-09-04 16:42 | Emergency (ER) | payer OTHER ==
[~2023-09-04] VITALS: Ht 177.8 cm; Wt 97.1 kg
[2023-09-04 17:36] LABS: BASOPHILS ABSOLUTE AUTO 0.04 K/mm3 (0.00-0.23); BASOPHILS PERCENT AUTO 1 % (0-2); EOSINOPHILS ABSOLUTE AUTO 0.16 K/mm3 (0.00-0.68); EOSINOPHILS PERCENT AUTO 2 % (0-6); Hematocrit 35.6 % (37.0-53.0); Hemoglobin 12.2 g/dL (13.5-17.5); IMMATURE GRAN ABSOLUTE AUTO 0.04 K/mm3 (0.00-0.10); IMMATURE GRAN PERCENT AUTO 1 % (0-1); LYMPHOCYTES ABSOLUTE AUTO 1.11 K/mm3 (0.84-5.20); LYMPHOCYTES PERCENT AUTO 13 % (21-46); MONOCYTES ABSOLUTE AUTO 0.73 K/mm3 (0.16-1.47); MONOCYTES PERCENT AUTO 8 % (4-13); Mean Corpuscular HGB Conc 34.3 g/dL (31.5-36.5); Mean Corpuscular Volume 85 fL (80-100); Mean Platelet Volume 9.9 fL (9.1-12.4); NEUTROPHILS ABSOLUTE AUTO 6.65 K/mm3 (1.96-9.15); NEUTROPHILS PERCENT AUTO 76 % (41-73); Platelet Count 219 K/mm3 (150-400); RDW Coefficient Variation 13.5 % (11.7-14.2); RDW Standard Deviation 41.4 fL (35.1-46.3); Red Blood Cell Count 4.21 M/mm3 (4.30-5.90); White Blood Cell Count 8.73 K/mm3 (4.00-11.30)
[2023-09-04 17:54] LABS: Albumin, Blood 3.3 g/dL (3.4-5.0); Bilirubin, Total 0.9 mg/dL (0.1-1.0); Bun/Creatinine Ratio 10.9 (12.0-20.0); Creatinine, Blood 0.92 mg/dL (0.60-1.20); Globulin, Blood 3.2 g/dL (2.2-4.0); Potassium, Blood 4.2 mmol/L (3.5-5.5); Total Protein, Blood 6.5 g/dL (6.4-8.2)
[2023-09-04] MEDS ORDERED: Magnesium Citr296 ML PO (19:05)
[2023-09-04] MEDS ORDERED: Magic Bullet10 MG PR (19:05)
[2023-09-04 19:14] VITALS: BP 140/77
== END 2023-09-04 19:21 | disposition home or self-care (01) ==
LOC: ER 16:42
PROVIDERS: Emergency Medicine
DX: K59.00 Constipation, unspecified (principal); E11.9 Type 2 diabetes mellitus without complications; I10 Essential (primary) hypertension; Z79.02 Long term (current) use of antithrombotics/antiplatelets; Z79.82 Long term (current) use of aspirin; Z79.84 Long term (current) use of oral hypoglycemic drugs; Z79.51 Long term (current) use of inhaled steroids; Z79.899 Other long term (current) drug therapy
CPT/HCPCS: 74177; 80053; 85025; 99284-25; Q9967

== ENCOUNTER 2024-02-20 12:07 | Emergency (ER) | payer OTHER ==
[~2024-02-20] VITALS: Ht 177.8 cm; Wt 95.2 kg
[~2024-02-20 12:07] MED LIST changes: +Magic Bullet10 MG PR; +Magnesium Citr296 ML PO; +Voltaren100 GM TOP
[2024-02-20 12:28] VITALS: BP 130/82
[2024-02-20 14:56] LABS: BASOPHILS ABSOLUTE AUTO 0.05 K/mm3 (0.00-0.23); BASOPHILS PERCENT AUTO 1 % (0-2); EOSINOPHILS ABSOLUTE AUTO 0.26 K/mm3 (0.00-0.68); EOSINOPHILS PERCENT AUTO 4 % (0-6); Hematocrit 34.4 % (37.0-53.0); Hemoglobin 10.7 g/dL (13.5-17.5); IMMATURE GRAN ABSOLUTE AUTO 0.02 K/mm3 (0.00-0.10); IMMATURE GRAN PERCENT AUTO 0 % (0-1); LYMPHOCYTES ABSOLUTE AUTO 1.17 K/mm3 (0.84-5.20); LYMPHOCYTES PERCENT AUTO 17 % (21-46); MONOCYTES ABSOLUTE AUTO 0.53 K/mm3 (0.16-1.47); MONOCYTES PERCENT AUTO 8 % (4-13); Mean Corpuscular HGB Conc 31.1 g/dL (31.5-36.5); Mean Corpuscular Volume 77 fL (80-100); Mean Platelet Volume 10.3 fL (9.1-12.4); NEUTROPHILS ABSOLUTE AUTO 4.99 K/mm3 (1.96-9.15); NEUTROPHILS PERCENT AUTO 71 % (41-73); Platelet Count 256 K/mm3 (150-400); RDW Coefficient Variation 15.1 % (11.7-14.2); Red Blood Cell Count 4.46 M/mm3 (4.30-5.90); White Blood Cell Count 7.02 K/mm3 (4.00-11.30)
[2024-02-20 15:09] LABS: Albumin, Blood 3.2 g/dL (3.4-5.0); Bilirubin, Total 0.6 mg/dL (0.1-1.0); Bun/Creatinine Ratio 21.6 (12.0-20.0); Calcium, Blood 9.1 mg/dL (8.5-10.1); Creatinine, Blood 0.79 mg/dL (0.60-1.20); Globulin, Blood 3.2 g/dL (2.2-4.0); Potassium, Blood 4.3 mmol/L (3.5-5.5); Total Protein, Blood 6.4 g/dL (6.4-8.2)
== END 2024-02-20 15:30 | disposition left against medical advice (07) ==
LOC: ER 12:07
PROVIDERS: Emergency Medicine
DX: R06.02 Shortness of breath (principal); Z53.21 Procedure and treatment not carried out due to patient leaving prior to being seen by health care provider
CPT/HCPCS: 80053; 83690; 84484; 85025; 93005; 93010

== ENCOUNTER → 2024-04-16 | Outpatient (CLI) | payer OTHER, MEDICARE ==
[2024-04-17 11:05] LABS: Stool Occult Bld Immuno 1 Positive (NEGATIVE)
== END | disposition home or self-care (01) ==
LOC: LAB 17:32 → LAB SHORT 17:32
PROVIDERS: Family Medicine
DX: D50.9 Iron deficiency anemia, unspecified (principal)
CPT/HCPCS: 82274

== ENCOUNTER → 2024-10-05 | Outpatient (CLI) | payer MEDICARE ==
[2024-10-05 16:34] LABS: BASOPHILS ABSOLUTE AUTO 0.04 K/mm3 (0.00-0.23); BASOPHILS PERCENT AUTO 1 % (0-2); EOSINOPHILS ABSOLUTE AUTO 0.19 K/mm3 (0.00-0.68); EOSINOPHILS PERCENT AUTO 2 % (0-6); Hematocrit 36.0 % (37.0-53.0); Hemoglobin 12.2 g/dL (13.5-17.5); IMMATURE GRAN ABSOLUTE AUTO 0.03 K/mm3 (0.00-0.10); IMMATURE GRAN PERCENT AUTO 0 % (0-1); LYMPHOCYTES ABSOLUTE AUTO 1.07 K/mm3 (0.84-5.20); LYMPHOCYTES PERCENT AUTO 13 % (21-46); MONOCYTES ABSOLUTE AUTO 0.59 K/mm3 (0.16-1.47); MONOCYTES PERCENT AUTO 7 % (4-13); Mean Corpuscular HGB Conc 33.9 g/dL (31.5-36.5); Mean Corpuscular Volume 91 fL (80-100); NEUTROPHILS ABSOLUTE AUTO 6.22 K/mm3 (1.96-9.15); NEUTROPHILS PERCENT AUTO 77 % (41-73); NRBC ABSOLUTE 0.00 K/mm3 (0.00-0.02); NRBC Auto 0.0 /100 WBC (0.0-0.2); Platelet Count 221 K/mm3 (150-400); RDW Coefficient Variation 13.5 % (11.7-14.2); RDW Standard Deviation 45.0 fL (35.1-46.3)
== END ==
LOC: LAB SHORT 15:32 → LAB 15:32
PROVIDERS: Internal Medicine Hematology & Oncology
DX: E61.1 Iron deficiency (principal)
CPT/HCPCS: 85025

== ENCOUNTER 2024-11-23 13:33 | Day surgery (SDC) | payer MEDICARE | END 2024-11-23 16:55 | disposition home or self-care (01) | LOC: ORSCSDS 13:33 | PROC: 0W3P8ZZ Control Bleeding in Gastrointestinal Tract, Via Natural or Artificial Opening Endoscopic (ICD-10-PCS; principal; 2024-11-23) | PROC: 0DBL8ZX Excision of Transverse Colon, Via Natural or Artificial Opening Endoscopic, Diagnostic (ICD-10-PCS; principal; 2024-11-23) | DX: D50.9 Iron deficiency anemia, unspecified (principal); R19.5 Other fecal abnormalities; K31.811 Angiodysplasia of stomach and duodenum with bleeding; D37.4 Neoplasm of uncertain behavior of colon; K64.8 Other hemorrhoids; K57.30 Diverticulosis of large intestine without perforation or abscess without bleeding; K31.7 Polyp of stomach and duodenum; I10 Essential (primary) hypertension; E11.9 Type 2 diabetes mellitus without complications; K21.9 Gastro-esophageal reflux disease without esophagitis; I48.91 Unspecified atrial fibrillation; E78.5 Hyperlipidemia, unspecified; I25.10 Atherosclerotic heart disease of native coronary artery without angina pectoris; N40.0 Benign prostatic hyperplasia without lower urinary tract symptoms; E66.9 Obesity, unspecified; Z68.30 Body mass index [BMI] 30.0-30.9, adult; Z79.02 Long term (current) use of antithrombotics/antiplatelets; Z79.899 Other long term (current) drug therapy ==